=== PATIENT | male | born 1960 | race Caucasian/White ===

== ENCOUNTER 2022-12-04 00:20 | Inpatient (IN) ==
[2022-12-04] MEDS ORDERED: Furosemide 40 mg/4 ml IV VIAL IV SLOW PU ONE (00:30)
[2022-12-04] MEDS ORDERED: Magnesium Sulfate 2 gm BAG 2 GM/50 ML BAG IVPB ONE (02:10)
[2022-12-04] MEDS ORDERED: Azithromycin 500 mg/250 ml NS 500 MG/250 ML BAG IVPB SCH (03:00)
[2022-12-04 03:40] LABS: Folate 14.75 ng/mL (5.90-24.80)
[2022-12-04] MEDS: Azithromycin 500 mg/250 ml NS 500 MG/250 ML BAG IVPB SCH (06:07)
[2022-12-04] MEDS: Bumetanide IV 0.25 MG/ML 4 ml VIAL (1 mg) IV SLOW PU SCH ×2 (06:09→12:56)
[2022-12-04] MEDS: Albuterol/Ipratropium NEB.SOL (2.5/0.5 MG) 3 ML NEB.SOLN INH SCH ×4 (08:03→19:36)
[2022-12-04] MEDS: CMCS: FLUTICAS/UMECLI/VILANT 200-62.5-25 MDI (NF) INH SCH (08:04)
[2022-12-04] MEDS: Nicotine PATCH 21 MG/24 HR PATCH TRANSDERM SCH (09:31)
[2022-12-04 10:35] LABS: Urine Appearance Clear; Urine Bilirubin Negative (Negative); Urine Blood 1+ (Negative); Urine Color Yellow; Urine Glucose Negative (Negative); Urine Ketones Negative (Negative); Urine Nitrite Negative (Negative); Urine Protein Negative (Negative); Urine Specific Gravity 1.011 (1.002-1.030); Urine Urobilinogen Negative (Negative)
[2022-12-04 11:06] LABS: Urine Bacteria Absent (Absent); Urine Red Blood Cell Trace(0-2/hpf) (Absent); Urine White Blood Cell Trace(0-5/hpf) (Absent)
[2022-12-04 11:25] LABS: Ferritin 137.9 ng/mL (24-336)
[2022-12-04] MEDS: NF: DAPAGLIFLOZIN 10 MG TAB (NF) PO SCH (11:33)
[2022-12-04 14:10] LABS: Venous Bicarbonate HCO3 30.3 mmol/L (24-28)
[2022-12-04 14:27] LABS: Calcium 8.9 mg/dL (8.6-10.3); Creatinine, Serum 0.81 mg/dL (0.67-1.17); Magnesium 2.3 mg/dL (1.9-2.7); Potassium 3.9 mmol/L (3.5-5.0); eGFR CKD-EPI 99.7 (>60)
[2022-12-04] MEDS: Senna TAB 8.6 mg TAB PO SCH (22:11)
[2022-12-05] MEDS: Azithromycin 500 mg/250 ml NS 500 MG/250 ML BAG IVPB SCH (04:20)
[2022-12-05] MEDS: Bumetanide IV 0.25 MG/ML 4 ml VIAL (1 mg) IV SLOW PU SCH ×2 (05:58→13:58)
[2022-12-05 06:28] LABS: ABS Basophils 0.1 10^3/uL (0.0-0.1); ABS Eosinophils 0.7 10^3/uL (0.0-0.5); ABS Monocytes 1.3 10^3/uL (0.0-1.1); ABS Neutrophils 8.9 10^3/uL (1.5-7.6); Eosinophil % 5.4 %; Hematocrit 39.3 % (38-53); Hemoglobin 13.3 g/dL (13.2-16.3); Lymphocyte % 15.6 %; Mean Corpuscular Hemoglobin 32.9 pg (27-33); Mean Corpuscular Hgb Conc 33.9 g/dL (31-36); Mean Corpuscular Volume 97.2 fL (80-97); Mean Platelet Volume 7.5 fL (7.5-11.2); Platelet Count 268 10^3/uL (150-450); Red Blood Count 4.04 10^6/uL (4.06-5.63); Red Cell Distribution Width 15.5 % (12-17)
[2022-12-05 06:53] LABS: Albumin 3.4 g/dL (3.2-5.2); Albumin/Globulin Ratio 1.1 (1-3); C Reactive Protein 122.02 mg/L (<8.01); Calcium 8.7 mg/dL (8.6-10.3); Creatinine, Serum 0.61 mg/dL (0.67-1.17); Globulin 3.1 g/dL (2-4); Potassium 3.8 mmol/L (3.5-5.0); Total Bilirubin 0.7 mg/dL (0.2-1.0); Total Protein 6.5 g/dL (6.4-8.9); eGFR CKD-EPI 108.6 (>60)
[2022-12-05] MEDS ORDERED: Albuterol/Ipratropium NEB.SOL (2.5/0.5 MG) 3 ML NEB.SOLN INH PRN (07:42)
[2022-12-05] MEDS: Albuterol/Ipratropium NEB.SOL (2.5/0.5 MG) 3 ML NEB.SOLN INH SCH (07:42)
[2022-12-05] MEDS: CMCS: FLUTICAS/UMECLI/VILANT 200-62.5-25 MDI (NF) INH SCH ×2 (07:44→11:24)
[2022-12-05] MEDS ORDERED: Sulfur Hexaflouride MICROSPHR 25 MG VIAL ONE (08:28)
[2022-12-05] MEDS ORDERED: Pneumococcal Vac 23-Polyvalent IM ONE (09:00)
[2022-12-05] MEDS: Nicotine PATCH 21 MG/24 HR PATCH TRANSDERM SCH (11:11)
[2022-12-05] MEDS: NF: DAPAGLIFLOZIN 10 MG TAB (NF) PO SCH (11:13)
[2022-12-05 19:00] LABS: Calcium 8.9 mg/dL (8.6-10.3); Creatinine, Serum 0.75 mg/dL (0.67-1.17); Magnesium 1.7 mg/dL (1.9-2.7); Potassium 3.6 mmol/L (3.5-5.0)
[2022-12-05] MEDS ORDERED: Potassium Chlor 20 meq TAB.ER PO ONE (19:23)
[2022-12-05] MEDS ORDERED: Magnesium Sulfate 2 gm BAG 2 GM/50 ML BAG IVPB ONE (19:23)
[2022-12-05] MEDS: Senna TAB 8.6 mg TAB PO SCH (21:28)
[2022-12-06] MEDS: Azithromycin 500 mg/250 ml NS 500 MG/250 ML BAG IVPB SCH (03:56)
[2022-12-06] MEDS ORDERED: HYDROmorphone 0.5 MG/0.5 ML SYRINGE IV SLOW PU ONE (05:15)
[2022-12-06] MEDS: Bumetanide IV 0.25 MG/ML 4 ml VIAL (1 mg) IV SLOW PU SCH ×2 (06:25→12:41)
[2022-12-06 06:50] LABS: Activated Partial Thrombo Time 31.5 seconds (26.0-38.0); INR 1.23 (0.83-1.13)
[2022-12-06 06:57] LABS: Calcium 8.7 mg/dL (8.6-10.3); Creatinine, Serum 0.72 mg/dL (0.67-1.17); Phosphorus 3.5 mg/dL (2.5-5.0); Potassium 3.9 mmol/L (3.5-5.0); eGFR CKD-EPI 103.3 (>60)
[2022-12-06 06:58] LABS: ABS Basophils 0.1 10^3/uL (0.0-0.1); ABS Eosinophils 0.6 10^3/uL (0.0-0.5); ABS Neutrophils 7.4 10^3/uL (1.5-7.6); ABS Nucleated RBC 0.01 10^3/ul; Eosinophil % 5.3 %; Hematocrit 41.2 % (38-53); Hemoglobin 13.9 g/dL (13.2-16.3); Lymphocyte % 17.7 %; Mean Corpuscular Hemoglobin 32.6 pg (27-33); Mean Corpuscular Hgb Conc 33.6 g/dL (31-36); Mean Corpuscular Volume 96.9 fL (80-97); Mean Platelet Volume 7.6 fL (7.5-11.2); Nucleated Red Blood Cells % 0.1 /100 WBC (0.0-0.4); Platelet Count 292 10^3/uL (150-450); Red Blood Count 4.25 10^6/uL (4.06-5.63); Red Cell Distribution Width 14.8 % (12-17); White Blood Count 11.2 10^3/uL (3.6-10.2)
[2022-12-06] MEDS: CMCS: FLUTICAS/UMECLI/VILANT 200-62.5-25 MDI (NF) INH SCH (07:27)
[2022-12-06 08:03] LABS: HDL Cholesterol 40.4 mg/dL
[2022-12-06] MEDS: Nicotine PATCH 21 MG/24 HR PATCH TRANSDERM SCH (09:22)
[2022-12-06] MEDS: NF: DAPAGLIFLOZIN 10 MG TAB (NF) PO SCH (09:23)
[2022-12-06 09:51] LABS: PCO2 Arterial 54 mmHg (35-45)
[2022-12-06 09:56] LABS: PO2 Arterial < 38 mmHg (80-100)
[2022-12-06 11:27] LABS: ABS Basophils 0.1 10^3/uL (0.0-0.1); ABS Eosinophils 0.6 10^3/uL (0.0-0.5); ABS Monocytes 1.2 10^3/uL (0.0-1.1); ABS Neutrophils 7.5 10^3/uL (1.5-7.6); ABS Nucleated RBC 0.01 10^3/ul; Eosinophil % 4.9 %; Hematocrit 42.3 % (38-53); Hemoglobin 14.4 g/dL (13.2-16.3); Lymphocyte % 17.8 %; Mean Corpuscular Hemoglobin 32.7 pg (27-33); Mean Corpuscular Volume 96.1 fL (80-97); Mean Platelet Volume 7.7 fL (7.5-11.2); Nucleated Red Blood Cells % 0.1 /100 WBC (0.0-0.4); Platelet Count 321 10^3/uL (150-450); Red Blood Count 4.41 10^6/uL (4.06-5.63); Red Cell Distribution Width 15.3 % (12-17); White Blood Count 11.4 10^3/uL (3.6-10.2)
[2022-12-06 11:46] LABS: Albumin 3.8 g/dL (3.2-5.2); Albumin/Globulin Ratio 1.1 (1-3); Calcium 9.1 mg/dL (8.6-10.3); Creatinine, Serum 0.65 mg/dL (0.67-1.17); Globulin 3.4 g/dL (2-4); Potassium 3.8 mmol/L (3.5-5.0); Total Bilirubin 0.5 mg/dL (0.2-1.0); Total Protein 7.2 g/dL (6.4-8.9); eGFR CKD-EPI 106.5 (>60)
[2022-12-06 13:37] LABS: High Sensitivity Troponin 1 Hr 576 pg/mL (<20)
[2022-12-06 16:06] LABS: ABS Basophils 0.2 10^3/uL (0.0-0.1); ABS Eosinophils 0.5 10^3/uL (0.0-0.5); ABS Lymphocytes 2.1 10^3/uL (1.0-4.8); ABS Monocytes 1.1 10^3/uL (0.0-1.1); ABS Neutrophils 7.1 10^3/uL (1.5-7.6); ABS Nucleated RBC 0.01 10^3/ul; Eosinophil % 4.4 %; Hemoglobin 14.5 g/dL (13.2-16.3); Mean Corpuscular Hemoglobin 32.6 pg (27-33); Mean Corpuscular Hgb Conc 33.7 g/dL (31-36); Mean Corpuscular Volume 96.5 fL (80-97); Mean Platelet Volume 7.7 fL (7.5-11.2); Platelet Count 302 10^3/uL (150-450); Red Blood Count 4.45 10^6/uL (4.06-5.63); Red Cell Distribution Width 15.4 % (12-17); White Blood Count 10.9 10^3/uL (3.6-10.2)
[2022-12-06 16:22] LABS: Creatinine, Serum 0.74 mg/dL (0.67-1.17); eGFR CKD-EPI 102.4 (>60)
[2022-12-06] MEDS: Heparin DRIP 25,000 UNITS BAG 25,000 UNITS/500 ML BAG IV SCH (17:09)
[2022-12-06] MEDS ORDERED: Bacitracin OINTMENT PAK TOPICAL SCH (21:00)
[2022-12-06] MEDS: Senna TAB 8.6 mg TAB PO SCH (22:09)
[2022-12-06] MEDS: Bacitracin OINTMENT TUBE TOPICAL SCH (23:26)
[2022-12-07] MEDS: Heparin 5000 UNITS/ML 1 mL VIAL IV SCH
[2022-12-07 04:30] LABS: ABS Eosinophils 0.6 10^3/uL (0.0-0.5); ABS Lymphocytes 2.7 10^3/uL (1.0-4.8); ABS Monocytes 1.1 10^3/uL (0.0-1.1); ABS Neutrophils 5.7 10^3/uL (1.5-7.6); ABS Nucleated RBC 0.01 10^3/ul; Eosinophil % 5.9 %; Hematocrit 41.5 % (38-53); Hemoglobin 14.3 g/dL (13.2-16.3); Lymphocyte % 26.5 %; Mean Corpuscular Hemoglobin 32.8 pg (27-33); Mean Corpuscular Hgb Conc 34.4 g/dL (31-36); Mean Corpuscular Volume 95.5 fL (80-97); Mean Platelet Volume 7.5 fL (7.5-11.2); Nucleated Red Blood Cells % 0.1 /100 WBC (0.0-0.4); Platelet Count 271 10^3/uL (150-450); Red Blood Count 4.35 10^6/uL (4.06-5.63); Red Cell Distribution Width 15.2 % (12-17); White Blood Count 10.1 10^3/uL (3.6-10.2)
[2022-12-07 04:46] LABS: Calcium 8.9 mg/dL (8.6-10.3); Creatinine, Serum 0.72 mg/dL (0.67-1.17); Magnesium 1.9 mg/dL (1.9-2.7); Phosphorus 3.7 mg/dL (2.5-5.0); Potassium 3.5 mmol/L (3.5-5.0); eGFR CKD-EPI 103.3 (>60)
[2022-12-07] MEDS: Heparin DRIP 25,000 UNITS BAG 25,000 UNITS/500 ML BAG IV SCH (05:37)
[2022-12-07] MEDS ORDERED: Magnesium Sulfate 2 gm BAG 2 GM/50 ML BAG IVPB ONE (05:48)
[2022-12-07] MEDS ORDERED: Potassium Chlor 20 meq TAB.ER PO ONE ×2 (05:48)
[2022-12-07] MEDS: Bumetanide IV 0.25 MG/ML 4 ml VIAL (1 mg) IV SLOW PU SCH ×2 (06:04→13:23)
[2022-12-07] MEDS: Nicotine PATCH 21 MG/24 HR PATCH TRANSDERM SCH (07:49)
[2022-12-07] MEDS: Bacitracin OINTMENT TUBE TOPICAL SCH (07:52)
[2022-12-07] MEDS: NF: DAPAGLIFLOZIN 10 MG TAB (NF) PO SCH (07:52)
[2022-12-07 09:44] LABS: Activated Partial Thrombo Time 63.7 seconds (26.0-38.0)
[2022-12-07] MEDS: CMCS: FLUTICAS/UMECLI/VILANT 200-62.5-25 MDI (NF) INH SCH (11:18)
[2022-12-07] MEDS ORDERED: NS 0.9% 1000 ml BAG 1,000 ML IV SCH (12:00)
[2022-12-07 13:33] LABS: Hematocrit 43.6 % (38-53); Mean Corpuscular Hgb Conc 34.4 g/dL (31-36); Mean Platelet Volume 7.8 fL (7.5-11.2); Platelet Count 300 10^3/uL (150-450); Red Blood Count 4.54 10^6/uL (4.06-5.63); Red Cell Distribution Width 15.1 % (12-17)
[2022-12-07 14:02] LABS: RBC Morphology Normal (Normal)
[2022-12-07 14:03] LABS: ABS Basophils 0.1 10^3/uL (0.0-0.1); ABS Eosinophils 0.4 10^3/uL (0.0-0.5); ABS Lymphocytes 2.5 10^3/uL (1.0-4.8); ABS Monocytes 0.9 10^3/uL (0.0-1.1); ABS Neutrophils 6.1 10^3/uL (1.5-7.6); ABS Nucleated RBC 0.01 10^3/ul; Eosinophil % 4.2 %; Lymphocyte % 24.8 %; Nucleated Red Blood Cells % 0.1 /100 WBC (0.0-0.4)
[2022-12-07 14:21] LABS: Calcium 8.6 mg/dL (8.6-10.3); Creatinine, Serum 0.74 mg/dL (0.67-1.17); Potassium 3.9 mmol/L (3.5-5.0); eGFR CKD-EPI 102.4 (>60)
[2022-12-07] MEDS ORDERED: Ketamine HCL 50 mg/ml 10 ml VIAL (500 MG) ONE (14:45)
[2022-12-07] MEDS ORDERED: fentaNYL 100 mcg/2 ml 50 MCG/ML VIAL ONE (14:46)
[2022-12-07] MEDS ORDERED: Heparin 1,000 UNIT/ML 10 ml (10,000 UNITS) CATHLAB/DIALYSIS ONE (15:14)
[2022-12-07] MEDS ORDERED: Heparin 2 UNITS/ML 1000 mls 2,000 ML IV ONE (15:14)
[2022-12-07] MEDS ORDERED: Iohexol 350 (CONTRAST) 100 ML PAK IV ONE ×2 (15:15→15:55)
[2022-12-07] MEDS ORDERED: Lidocaine 1% MPF 5 ML VIAL ONE (15:15)
[2022-12-07] MEDS ORDERED: nitroGLYCERIN DRIP 25,000 MCG/250 ML BTL ONE (15:15)
[2022-12-07] MEDS ORDERED: niCARdipine 0.1MG/ML IVPREMIX 20 MG/200 ML BAG IV ONE (15:27)
[2022-12-07] MEDS ORDERED: Heparin 2 UNITS/ML 1000 mls 1,000 ML IV ONE (15:37)
[2022-12-07 20:31] LABS: INR 1.24 (0.83-1.13)
[2022-12-07] MEDS: Senna TAB 8.6 mg TAB PO SCH (20:41)
[2022-12-08 05:40] LABS: Hematocrit 44.4 % (38-53); Hemoglobin 15.3 g/dL (13.2-16.3); Mean Corpuscular Hemoglobin 32.8 pg (27-33); Mean Corpuscular Hgb Conc 34.4 g/dL (31-36); Mean Corpuscular Volume 95.5 fL (80-97); Mean Platelet Volume 7.8 fL (7.5-11.2); Platelet Count 283 10^3/uL (150-450); Red Blood Count 4.65 10^6/uL (4.06-5.63); Red Cell Distribution Width 14.8 % (12-17); White Blood Count 10.7 10^3/uL (3.6-10.2)
[2022-12-08 05:56] LABS: Calcium 8.5 mg/dL (8.6-10.3); Creatinine, Serum 0.69 mg/dL (0.67-1.17); Magnesium 2.1 mg/dL (1.9-2.7); Phosphorus 3.1 mg/dL (2.5-5.0); Potassium 3.7 mmol/L (3.5-5.0); eGFR CKD-EPI 104.6 (>60)
[2022-12-08] MEDS: Bumetanide IV 0.25 MG/ML 4 ml VIAL (1 mg) IV SLOW PU SCH ×2 (06:27→12:56)
[2022-12-08] MEDS: Heparin DRIP 25,000 UNITS BAG 25,000 UNITS/500 ML BAG IV SCH ×2 (06:40→17:13)
[2022-12-08] MEDS: CMCS: FLUTICAS/UMECLI/VILANT 200-62.5-25 MDI (NF) INH SCH (07:12)
[2022-12-08] MEDS: Heparin 5000 UNITS/ML 1 mL VIAL IV SCH (07:15)
[2022-12-08] MEDS ORDERED: Potassium Chlor 20 meq TAB.ER PO ONE (07:22)
[2022-12-08] MEDS ORDERED: Potassium Chlor 10 meq TAB PO ONE (07:22)
[2022-12-08] MEDS: Nicotine PATCH 21 MG/24 HR PATCH TRANSDERM SCH (07:43)
[2022-12-08 08:15] LABS: ABS Basophils 0.2 10^3/uL (0.0-0.1); ABS Eosinophils 0.4 10^3/uL (0.0-0.5); ABS Lymphocytes 2.4 10^3/uL (1.0-4.8); ABS Neutrophils 6.6 10^3/uL (1.5-7.6); ABS Nucleated RBC 0.01 10^3/ul; Lymphocyte % 22.8 %; Nucleated Red Blood Cells % 0.1 /100 WBC (0.0-0.4); RBC Morphology Normal (Normal)
[2022-12-08] MEDS: Bacitracin OINTMENT TUBE TOPICAL SCH (08:34)
[2022-12-08] MEDS: NF: DAPAGLIFLOZIN 10 MG TAB (NF) PO SCH (09:55)
[2022-12-08 20:50] VITALS: BP 139/65
== END 2022-12-08 20:20 | disposition short-term general hospital (02) | DRG 192 ==
LOC: ED 00:20 → EDHOLD 00:34 → SUATTDRO 00:34 → MEDTELE 03:30 → ICU 05:25
PROVIDERS: ADMIT Student in an Organized Health Care Education/Training Program; ATTEND Internal Medicine